=== PATIENT | male | born 1995 | race Caucasian/White ===

== ENCOUNTER 2017-01-07 01:19 | Emergency (ER) | payer SELFPAY ==
[~2017-01-07] VITALS: Ht 167.6 cm; Wt 54.4 kg
[2017-01-07 01:23] VITALS: BP 137/98
[2017-01-07] MEDS ORDERED: STERILE WATER 10 ML ONE (01:57)
[2017-01-07] MEDS ORDERED: AZITHROMYCIN 250 MG TAB PO ONE (02:00)
[2017-01-07] MEDS ORDERED: cefTRIAXone SODIUM 250 MG VL IM ONE (02:00)
== END 2017-01-07 02:14 | disposition home or self-care (01) ==
LOC: ER 01:19
DX: A64 Unspecified sexually transmitted disease (principal); R30.0 Dysuria; F17.210 Nicotine dependence, cigarettes, uncomplicated
CPT/HCPCS: 96372; 99283; J0696; 29125

== ENCOUNTER 2018-05-24 18:00 | Emergency (ER) | payer MEDICAID ==
[~2018-05-24] VITALS: Ht 167.6 cm; Wt 65.8 kg
[2018-05-24] MEDS ORDERED: cefTRIAXone SOD 1,000 MG VL IM ONE (19:00)
[2018-05-24] MEDS ORDERED: LIDOCAINE W/ EPINEPHRINE 1% 20ML VIAL SC ONE (19:00)
[2018-05-24 19:25] VITALS: BP 118/74
== END 2018-05-24 19:42 | disposition home or self-care (01) ==
LOC: ER 18:00
DX: H66.42 Suppurative otitis media, unspecified, left ear (principal); F17.210 Nicotine dependence, cigarettes, uncomplicated
CPT/HCPCS: 96372; 99284; J0696

== ENCOUNTER 2022-11-12 15:49 | Emergency (ER) | payer MEDICAID ==
[~2022-11-12] VITALS: Ht 167.6 cm; Wt 62.4 kg
[2022-11-12] MEDS ORDERED: KETOROLAC TROMETH 60MG/2ML VIAL IM ONE (16:00)
[2022-11-12 16:01] VITALS: BP 151/91
[2022-11-12] MEDS ORDERED: IBUP800T26 PO (18:12)
[2022-11-12] MEDS ORDERED: HYDR-4902 PO (18:12)
== END 2022-11-12 18:29 | disposition home or self-care (01) ==
LOC: ER 15:49
DX: S56.911A Strain of unspecified muscles, fascia and tendons at forearm level, right arm, initial encounter (principal); F17.210 Nicotine dependence, cigarettes, uncomplicated; X58.XXXA Exposure to other specified factors, initial encounter; Y93.89 Activity, other specified; Y92.89 Other specified places as the place of occurrence of the external cause; Y99.8 Other external cause status
CPT/HCPCS: 73090; 73110; 96372; 99284; J1885

== ENCOUNTER 2025-06-13 23:45 | Emergency (ER) | payer MEDICAID ==
[~2025-06-13] VITALS: Ht 167.6 cm; Wt 54.5 kg
[~2025-06-13 23:45] MED LIST: HYDR-4902 PO; IBUP-1455 PO
[2025-06-14] MEDS ORDERED: LIDOCAINE 1% HCL (LOCAL ANESTH.) INJ 20ML MDV ID ONE (00:30)
[2025-06-14] MEDS ORDERED: AMOXICILLIN/CLAVUL 875 MG TAB PO ONE (00:30)
--- NOTE | 2025-06-14 00:41 | DVH ---
CLINICAL INDICATION: pain crush inj TECHNIQUE: XYXY L HAND 3V XRAY Comparison: None FINDINGS/IMPRESSION: : There is no evidence of acute fracture or dislocation. Soft tissues are unremarkable.
[2025-06-14] MEDS ORDERED: ceFAZolin 1GM/50ML 50 ML IV ONE (01:45)
[2025-06-14] MEDS ORDERED: SODIUM CHLORIDE 0.9% 1,000 ML IV ONE (01:45)
[2025-06-14] MEDS: HYDROcodone-ACET 10/325MG TAB PO ONE (02:21)
--- NOTE | 2025-06-14 03:48 | ED.PDOC ---
History of Present Illness HPI Comments 29 y/o M presents with significant for c/c of left hand pain. Patient reports on his car falling and crushing his left hand, while working on his vehicle, earlier, today. Bleeding controlled. Chief Complaint: Upper Extremity Time Seen by MD: 00:20 Primary Care Provider: GABRIELLAIES Reviewed Notes: Nurses Notes, Medications, Allergies Allergies: Coded Allergies: NO KNOWN ALLERGIES (Unverified , 01/09/10) Home Meds Active Scripts Hydrocodone-Acetaminophen (Hydrocodone Bitartrate/AC 5-325 mg) 1 Tab Tab, 1 TAB PO Q6HP PRN, #20 TAB Prov:EMMANUEL HERMAN PAC 11/12/22 Ibuprofen Micronized (Ibuprofen) 800 Mg Tab, 800 MG PO Q8HP PRN, #30 TAB Prov:EMMANUEL HERMAN PAC 11/12/22 Information Source: Patient Mode of Arrival: Ambulatory Past Medical History PAST MEDICAL HISTORY: Denies Surgical History: Denies all surgeries Family History Family History: Unknown Social History Smoker: Cigarettes Alcohol: Denies ETOH Use Drugs: Denies Drug Use Lives In: Home All Other Systems: Reviewed and Negative (As per HPI) Physical Exam General Appearance: No Apparent Distress, Normal HEENT: Normal ENT Inspection, Pharynx Normal, TMs Normal Neck: Full Range of Motion, Non-Tender, Normal, Normal Inspection Respiratory: Chest Non-Tender, Lungs Clear, No Accessory Muscle Use, No Respiratory Distress, Normal Breath Sounds Cardiovascular: No Edema, No JVD, No Murmur, No Gallop, Normal Peripheral Pulses, Regular Rate/Rhythm Breast Exam: Deferred Gastrointestinal: No Organomegaly, Non Tender, No Pulsatile Mass, Normal Bowel Sounds, Soft Genitalia: Deferred Pelvic: Deferred Rectal: Deferred Extremities: No calf tenderness, Normal capillary refill, No pedal edema, Other (crush injury to left hand with swelling to fourth digit and multiple small lacerations ) Musculoskeletal : Apperance: Normal Neurologic: Alert, chili maker II-XII nml as Tested, No Motor Deficits, Normal Affect, Normal Mood, No Sensory Deficits Cerebellar Function: Normal Reflexes: Normal Skin: Dry, Normal Color, Warm Lymphatic: No Adenopathy Was a procedure done? Was a procedure done?: No Differential Dx Considerations may include: fractures, contusions, sprain, neurovascular injuries, among others X-Ray, Labs, Meds, VS Vital Signs Date Time Temp Pulse Resp B/P (MAP) Pulse Ox O2 Delivery O2 Flow Rate FiO2 06/13/25 23:55 98.5 83 18 130/89 98 98.5 Lab Test 06/14/25 03:20 Range/Units White Blood Count Pending Red Blood Count Pending Hemoglobin Pending Hematocrit Pending Mean Corpuscular Volume Pending Mean Corpuscular Hemoglobin Pending Mean Corpuscular Hemoglobin Concent Pending Red Cell Distribution Width Pending Platelet Count Pending Mean Platelet Volume Pending Neutrophils (%) (Auto) Pending Lymphocytes (%) (Auto) Pending Monocytes (%) (Auto) Pending Basophils (%) (Auto) Pending Neutrophils # (Auto) Pending Lymphocytes # (Auto) Pending Monocytes # (Auto) Pending Prothrombin Time Pending Prothrombin Time INR Pending Activated Partial Thromboplast Time Pending Sodium Level Pending Potassium Level Pending Chloride Level Pending Carbon Dioxide Level Pending Anion Gap Pending Blood Urea Nitrogen Pending Creatinine Pending Glomerular Filtration Rate Calc Pending BUN/Creatinine Ratio Pending Serum Glucose Pending Calcium Level Pending Total Bilirubin Pending Aspartate Amino Transferase (AST) Pending Alanine Aminotransferase (ALT) Pending Alkaline Phosphatase Pending Total Protein Pending Albumin Pending Plasma/Serum Blood Alcohol Pending Current Medications Medications (Trade) Dose Ordered Sig/Lia Route Start Time Stop Time Status Last Admin Acetaminophen/ Hydrocodone Bitart ([place] 10/325MG Tab) 1 tab ONCE ONCE PO 06/14/25 00:15 06/14/25 00:16 DC 06/14/25 02:21 Time of 1ST Reevaluation: 00:50 Reevaluation 1ST: Unchanged Patient Education/Counseling: Diagnosis, Treatment Family Education/Counseling: Diagnosis, Treatment SEPSIS Sepsis Screen Date sepsis recognized/suspect: Jun 13, 2025 Time Sepsis recognized/suspect: 2357 Recent Procedure: No On Antibiotic Therapy: No Respiratory Rate >20: No Heart Rate >90: No Temp<36 C (96.8 F) or >38.3 C: No SBP <90 or MAP <65 mmHG: No New Acute Mental Status Change: No Is the patient on CPAP, BIPAP,: No Physician Orders L Hand 3v Xray (06/14/25 00:07) Hand Irrigation With Ns Prn (06/14/25 00:07) Laceration Setup (06/14/25 ) Complete Blood Count (06/14/25 02:52) Comprehensive Metabolic Panel (06/14/25 02:52) PTPTT (06/14/25 02:52) Blood Alcohol (06/14/25 02:54) Vital Signs Date Time Temp Pulse Resp B/P (MAP) Pulse Ox O2 Delivery O2 Flow Rate FiO2 06/13/25 23:55 98.5 83 18 130/89 98 98.5 Laboratory Tests Test 06/14/25 03:20 White Blood Count Pending Medications Medications Dose Ordered Sig/Lia Route Start Time Stop Time Status Last Admin Dose Admin Acetaminophen/ Hydrocodone Bitart 1 tab ONCE ONCE PO 06/14/25 00:15 06/14/25 00:16 DC 06/14/25 02:21 Departure 1 Departure Time of Disposition: 03:00 Impression: Primary Impression: Crushing injury of left hand Additional Impressions: Laceration of left ring finger with complication Tendon injury Disposition: 02 [facility]ORT TERM [facility]OSPITAL Condition: Guarded Comments Patient with severe crush injury to left hand after a car fell on his hand. He has a large deep laceration to the left ring finger. There is obvious tendon injury there. X-rays do not show any fracture. The wound was irrigated with Betadine and normal saline. Patient was given antibiotics and tetanus shot. I contacted [facility] and they accept the patient for transfer Dr. Angel hand specialist Critical Care Note Critical Care Time?: Yes (35 min-critical care time only) Critical care comment: Total critical care time: Approximately 36 minutes Due to a high probability of clinically significant, life threatening deterio ration, the patient required my highest level of preparedness to intervene emergently and I personally spent this critical care time directly and personally managing the patient. This critical care time included obtaining a history; examining the patient; pulse oximetry; ordering and review of studies; arranging urgent treatment with development of a management plan; evaluation of patient's response to treatment; frequent reassessment; and, discussions with other providers. This critical care time was performed to assess and manage the high probability of imminent, life-threatening deterioration that could result in multi-organ failure. It was exclusive of separately billable procedures and treating other patients. Stability Stability form required: No Heart Score Heart Score: Heart Score Response (Comments) Value History N/A 0 EKG N/A 0 Age N/A 0 Risk Factors N/A 0 Troponin N/A 0 Total 0 I personally scribed for WANDA PAINTER MD ([email or web address]) on 06/14/25 at 03:48. Electronically submitted by Jeet Sam ([email or web address]). WANDA PAINTER MD Jun 14, 2025 03:48
[2025-06-14] MEDS ORDERED: TETANUS-DIPTH-ACEL PERTUSSIS 0.5ML SYR Tdap IM ONE (04:00)
[2025-06-14 04:01] LABS: Alanine Aminotransferase 24 U/L (7-40); Albumin 4.5 g/dL (3.2-4.8); Alkaline Phosphatase 105 U/L (46-116); Anion Gap 10 (5-15); Bilirubin, Total 0.6 mg/dL (0.2-1.0); Calcium 9.6 mg/dL (8.7-10.4); Carbon Dioxide 25 mmol/L (20-31); Chloride 103 mmol/L (98-107); Glucose 94 mg/dL (74-106); Potassium 4.1 mmol/L (3.5-5.1); Sodium 138 mmol/L (136-145); Total Protein 7.7 g/dL (5.7-8.2)
[2025-06-14 04:03] LABS: Hematocrit 44.0 % (41.0-53.0); Hemoglobin 15.3 g/dL (13.5-17.5); Mean Corpuscular Hemoglobin 31.5 pg (28.0-32.0); Mean Corpuscular Volume 90.4 fL (80.0-100.0); Nucleated Red Blood Cells % 0.0 %
[2025-06-14 04:16] LABS: INR 0.99 (0.9-1.15); Partial Thromboplastin Time 29.9 SEC (24.5-34.5); Prothrombin Time 10.5 sec (9.3-11.8)
[2025-06-14 04:32] LABS: BUN/Creatinine Ratio 13.6 (10.0-20.0); Blood Urea Nitrogen 11 mg/dL (9-23)
[2025-06-14 05:50] VITALS: BP 123/75; PULSE 96; RESP 17; TEMP 98.2; O2SAT 96
== END 2025-06-14 06:05 | disposition short-term general hospital (02) ==
LOC: ER 23:45
DX: S61.215A Laceration without foreign body of left ring finger without damage to nail, initial encounter (principal); S67.22XA Crushing injury of left hand, initial encounter; T14.8XXA Other injury of unspecified body region, initial encounter; F17.210 Nicotine dependence, cigarettes, uncomplicated; Z79.899 Other long term (current) drug therapy; W23.0XXA Caught, crushed, jammed, or pinched between moving objects, initial encounter; Y93.89 Activity, other specified; Y92.89 Other specified places as the place of occurrence of the external cause; Y99.8 Other external cause status
CPT/HCPCS: 36415; 73130; 80053; 80320; 85025; 85610; 85730; 99291